=== PATIENT | male | born 1985 | race Caucasian/White ===

== ENCOUNTER 2025-01-09 11:20 | Outpatient (CLI) | payer OTHER, SELFPAY ==
[2025-01-09 19:42] LABS: Hematocrit 45.8 % (42.0-52.0); Hemoglobin 15.1 g/dL (14.1-18.0); Immature Granulocytes % 0.2 %; Mean Corpuscular HGB Conc 33.0 g/dL (31.8-35.4); Mean Corpuscular Hemoglobin 30.9 pg (27.0-31.2); Mean Corpuscular Volume 93.9 fl (80-94); Nucleated Red Blood Cells % 0 %; Platelet Count 177 K/mm3 (142-424); Red Blood Count 4.88 M/mm3 (4.60-6.20); Red Cell Distribution Width-SD 45.8 fL; White Blood Count 5.1 K/mm3 (4.8-10.8)
[2025-01-09 21:17] LABS: Albumin Level 5.1 g/dl (3.5-5.0); Chloride 102 mmol/L (98-107); Sodium 141 mmol/L (136-145)
[2025-01-09 21:20] LABS: Alanine Aminotransferase 52 U/L (12-78); Albumin/Globulin Ratio 1.9 (1.1-1.8); Aspartate Amino Transferase 39 U/L (17-59); Blood Urea Nitrogen 15 mg/dl (9-20); Carbon Dioxide 29 mmol/L (22.0-30.0); Creatinine,Serum 1.00 mg/dl (0.66-1.25); Estimated Glomerular Filt Rate 83 ml/min (>60); GFR (African American) 101 ML/MIN (>60); Globulin 2.7 g/dL (1.3-3.2); Total Protein,Serum 7.8 g/dl (6.3-8.2)
[2025-01-09 21:21] LABS: Alkaline Phosphatase 86 U/L (38-126); Anion Gap 15.0 mEq/L (5-15); Bilirubin,Total 1.1 mg/dl (0.2-1.3); Calcium 9.5 mg/dl (8.4-10.2); Cholesterol 181 mg/dl (140-200); Glucose 58 mg/dl (74-100); HDL Cholesterol 30 mg/dl (40-60); Potassium 5.0 mmoL/L (3.5-5.1); Triglycerides 230 mg/dl (30-150)
[2025-01-09 22:08] LABS: Hepatitis C Ab Qual. W/ RFX NEGATIVE (Negative)
[2025-01-09 22:34] LABS: Free Thyroxine Index 2.8 ug/dL (5.93-13.13); T4 (Thyroxine) 7.7 ug/dl (5.53-11.0); Triiodothryronine (T3) Uptake 37 % (23.5-40.5)
[2025-01-09 22:48] LABS: Thyroid Stimulating Hormone 1.47 uIU/mL (0.465-4.68)
[2025-01-11 07:10] LABS: Hepatitis B Surface Antigen Negative (Negative)
== END 2025-01-09 23:59 | disposition home or self-care (01) ==
LOC: LAB.DROPOF 01-10 11:54
PROVIDERS: Nurse Practitioner Family; PCP Family Medicine; Visit Provider Family Medicine
DX: I10 Essential (primary) hypertension (principal); Z11.59 Encounter for screening for other viral diseases; Z11.4 Encounter for screening for human immunodeficiency virus [HIV]
CPT/HCPCS: 80053; 80061; 84436; 84443; 84479; 85025; 86803; 87340; 87389